=== PATIENT | female | born 1945 | race Caucasian/White ===

== ENCOUNTER 2016-04-13 17:10 | Inpatient (IN) | payer OTHER, MEDICAID ==
[~2016-04-13] VITALS: Ht 162.6 cm; Wt 115.4 kg
[2016-04-13] MEDS ORDERED: ACETAMINOPHEN 325 MG TAB ONE (18:31)
[2016-04-13] MEDS ORDERED: CEFTRIAXONE 1 GM VIAL ONE (20:30)
[2016-04-13] MEDS ORDERED: SODIUM CHLORIDE 0.9% 1,000 ML ONE (20:30)
[2016-04-13] MEDS ORDERED: SODIUM CHLORIDE 0.9% 100 ML IV ONE (20:31)
[2016-04-13] MEDS ORDERED: Hydrocodone/APAP 10/325 MG TAB ONE (20:43)
[2016-04-13] MEDS ORDERED: PHARMACY TO DOSE LEVAQUIN IV SCH (21:10)
[2016-04-13] MEDS ORDERED: PHARMACY TO DOSE ANTIBIOTIC XX SCH (21:10)
[2016-04-13] MEDS ORDERED: PHARMACY TO DOSE VANCOMYCIN IV SCH (21:10)
[2016-04-13] MEDS ORDERED: NEB-ALBUTEROL 2.5 MG/3 ML INH PRN (21:15)
[2016-04-13] MEDS ORDERED: CYCLOBENZAPRINE 5 MG TAB PO PRN (21:15)
[2016-04-13] MEDS ORDERED: SALINE FLUSH 10 ML FLUSH PRN (21:15)
[2016-04-13] MEDS ORDERED: MAG HYDROX 30 ML UDC PO PRN (21:15)
[2016-04-13] MEDS ORDERED: BISACODYL EC 5 MG TAB PO PRN (21:15)
[2016-04-13] MEDS ORDERED: BISACODYL 10 MG SUPP RECTAL PRN (21:15)
[2016-04-13] MEDS ORDERED: ACETAMINOPHEN 325 MG TAB PO PRN (21:15)
[2016-04-13] MEDS ORDERED: LORAZEPAM 0.5 MG TAB PO PRN (21:15)
[2016-04-13] MEDS ORDERED: ONDANSETRON 4 MG VIAL IV PRN (21:15)
[2016-04-13] MEDS ORDERED: [UNRECOGNIZED DRUG - REMARK] XX SCH (22:00)
[2016-04-13] MEDS: DUONEB INH SCH (23:10)
[2016-04-13 23:15] VITALS: RESP 18
[2016-04-13 23:16] VITALS: Ht 162.6 cm; Wt 115.4 kg
[2016-04-13 23:19] VITALS: BP_SYST 118; BP_SYST 124; RESP 16; TEMP 99.4
[2016-04-13] MEDS ORDERED: VANCOMYCIN 1,000 MG in SODIUM CHLORIDE 0.9% 250 ML IV ONE (23:20)
[2016-04-13] MEDS ORDERED: LEVOFLOXACIN 750 MG/150 ML 150 ML IV ONE (23:20)
[2016-04-13] MEDS ORDERED: VANCOMYCIN 2,500 MG in SODIUM CHLORIDE 0.9% 500 ML IV ONE (23:30)
[2016-04-13] MEDS: LEVOFLOXACIN 750 MG/150 ML 150 ML IV SCH (23:55)
[2016-04-14] MEDS: GUAIFENESIN ER 600 MG TABCR PO SCH ×3 (00:04→20:44)
[2016-04-14 03:08] VITALS: BP_SYST 130; RESP 18; TEMP 100.1
[2016-04-14] MEDS: SUCRALFATE 1 GM TAB PO SCH ×4 (05:49→20:44)
[2016-04-14] MEDS: LEVOTHYROXINE 0.2 MG TAB PO SCH (05:49)
[2016-04-14] MEDS: SODIUM CHLORIDE 0.9% FLUSH BAG 500 ML IV SCH (05:50)
[2016-04-14] MEDS: DUONEB INH SCH ×3 (07:20→18:30)
[2016-04-14 07:36] VITALS: BP_SYST 112; RESP 20; TEMP 99.4
[2016-04-14] MEDS: SALINE FLUSH 10 ML FLUSH SCH ×2 (08:11→20:44)
[2016-04-14] MEDS: LEVOFLOXACIN 750 MG/150 ML 150 ML IV SCH (08:11)
[2016-04-14] MEDS: TOLTERODINE 1 MG TAB PO SCH ×2 (08:12→20:44)
[2016-04-14] MEDS: GABAPENTIN 400 MG CAP PO SCH ×3 (08:12→20:45)
[2016-04-14] MEDS: SPIRONOLACTONE 25 MG TAB PO SCH (08:12)
[2016-04-14] MEDS: ASPIRIN 81 MG CHEW TAB PO SCH (08:12)
[2016-04-14] MEDS: PANTOPRAZOLE 40 MG TAB PO SCH (08:12)
[2016-04-14] MEDS: OSELTAMIVIR 75 MG CAP PO SCH ×2 (10:45→20:44)
[2016-04-14] MEDS ORDERED: Furosemide 40 MG/4 ML VIAL IV ONE (11:25)
[2016-04-14 11:28] VITALS: BP_SYST 132; RESP 18; TEMP 99.6
[2016-04-14] MEDS: AZTREONAM 1,000 MG in SODIUM CHLORIDE 0.9% 100 ML IV SCH ×2 (13:07→17:29)
[2016-04-14] MEDS: VANCOMYCIN 1,750 MG in SODIUM CHLORIDE 0.9% 500 ML IV SCH (14:31)
[2016-04-14 15:57] VITALS: BP_SYST 122; RESP 20; TEMP 99.6
[2016-04-14 19:36] VITALS: BP_SYST 146; TEMP 99.4
[2016-04-14] MEDS: Atorvastatin 20 MG TAB PO SCH (20:44)
[2016-04-14 23:13] VITALS: BP_SYST 168; RESP 18; TEMP 98.7
[2016-04-15] MEDS: AZTREONAM 1,000 MG in SODIUM CHLORIDE 0.9% 100 ML IV SCH ×2 (00:06→13:21)
[2016-04-15] MEDS: VANCOMYCIN 1,750 MG in SODIUM CHLORIDE 0.9% 500 ML IV SCH (02:44)
[2016-04-15 03:10] VITALS: BP_SYST 146; RESP 18; TEMP 99.1
[2016-04-15] MEDS: DUONEB INH SCH ×3 (06:14→18:30)
[2016-04-15] MEDS: LEVOTHYROXINE 0.2 MG TAB PO SCH (06:34)
[2016-04-15] MEDS: SODIUM CHLORIDE 0.9% FLUSH BAG 500 ML IV SCH ×2 (06:34→19:30)
[2016-04-15 07:49] VITALS: BP_SYST 160; RESP 18; TEMP 98.3
[2016-04-15] MEDS: SALINE FLUSH 10 ML FLUSH SCH ×2 (08:00→19:28)
[2016-04-15] MEDS: GABAPENTIN 400 MG CAP PO SCH ×3 (08:33→19:28)
[2016-04-15] MEDS: ASPIRIN 81 MG CHEW TAB PO SCH (08:34)
[2016-04-15] MEDS: TOLTERODINE 1 MG TAB PO SCH ×2 (08:34→19:43)
[2016-04-15] MEDS: SUCRALFATE 1 GM TAB PO SCH ×4 (08:34→19:43)
[2016-04-15] MEDS: SPIRONOLACTONE 25 MG TAB PO SCH (08:34)
[2016-04-15] MEDS: GUAIFENESIN ER 600 MG TABCR PO SCH ×2 (08:35→19:43)
[2016-04-15] MEDS: OSELTAMIVIR 75 MG CAP PO SCH ×2 (08:35→19:43)
[2016-04-15] MEDS: PANTOPRAZOLE 40 MG TAB PO SCH (08:35)
[2016-04-15 12:19] VITALS: BP_SYST 134; RESP 18; TEMP 98.8
[2016-04-15] MEDS: LINEZOLID 600 MG TAB PO SCH ×2 (15:17→19:42)
[2016-04-15] MEDS ORDERED: MISSING DOSE XX ONE (15:20)
[2016-04-15] MEDS: LEVOFLOXACIN 750 MG TAB PO SCH (15:53)
[2016-04-15 16:06] VITALS: BP_SYST 130; RESP 18; TEMP 98.9
[2016-04-15] MEDS ORDERED: BISACODYL EC 5 MG TAB PO ONE (17:00)
[2016-04-15] MEDS ORDERED: BISACODYL EC 5 MG TAB PO PRN (17:00)
[2016-04-15] MEDS ORDERED: ONDANSETRON 4 MG TAB PO PRN (19:25)
[2016-04-15] MEDS: Hydrocodone/APAP 10/325 MG TAB PO PRN (19:42)
[2016-04-15] MEDS: SENNA 8.6 MG TAB PO SCH (19:43)
[2016-04-15] MEDS: Atorvastatin 20 MG TAB PO SCH (19:43)
[2016-04-15 20:12] VITALS: BP_SYST 134; RESP 18; TEMP 98.9
[2016-04-15 22:41] VITALS: BP_SYST 142; RESP 18; TEMP 98.5
[2016-04-16] VITALS (7 sets, daily range): BP systolic 126–140; RESP 18; TEMP 97.9–98.1
[2016-04-16] MEDS: Hydrocodone/APAP 10/325 MG TAB PO PRN ×3 (01:27→14:02)
[2016-04-16] MEDS: SUCRALFATE 1 GM TAB PO SCH ×3 (06:02→16:00)
[2016-04-16] MEDS: LEVOTHYROXINE 0.2 MG TAB PO SCH (06:03)
[2016-04-16] MEDS: DUONEB INH SCH ×2 (07:16→11:56)
[2016-04-16] MEDS: SALINE FLUSH 10 ML FLUSH SCH (08:00)
[2016-04-16] MEDS: TOLTERODINE 1 MG TAB PO SCH (08:15)
[2016-04-16] MEDS: LINEZOLID 600 MG TAB PO SCH (08:15)
[2016-04-16] MEDS: LEVOFLOXACIN 750 MG TAB PO SCH (08:15)
[2016-04-16] MEDS: GUAIFENESIN ER 600 MG TABCR PO SCH (08:15)
[2016-04-16] MEDS: OSELTAMIVIR 75 MG CAP PO SCH (08:16)
[2016-04-16] MEDS: SENNA 8.6 MG TAB PO SCH (08:16)
[2016-04-16] MEDS: PANTOPRAZOLE 40 MG TAB PO SCH (08:16)
[2016-04-16] MEDS: SPIRONOLACTONE 25 MG TAB PO SCH (08:16)
[2016-04-16] MEDS: ASPIRIN 81 MG CHEW TAB PO SCH (08:16)
[2016-04-16] MEDS: GABAPENTIN 400 MG CAP PO SCH ×2 (08:18→16:00)
[2016-04-16] MEDS ORDERED: MISSING DOSE XX ONE (08:35)
[2016-04-16] MEDS ORDERED: NITROFURANTOIN 100 MG CAP PO SCH (13:00)
[2016-04-17] MEDS ORDERED: LEVOFLOXACIN 750 MG TAB PO SCH (09:00)
== END 2016-04-16 17:56 | DRG 291 ==
LOC: ENRESERVDT → ENRESERVTM → ER 17:10 → ENPENDDIS 21:07 → EMR 21:07 → 4THE 22:24
PROVIDERS: ADMIT Family Medicine Addiction Medicine; ATTEND Family Medicine Addiction Medicine
DX: I13.0 Hypertensive heart and chronic kidney disease with heart failure and stage 1 through stage 4 chronic kidney disease, or unspecified chronic kidney disease (principal); J11.00 Influenza due to unidentified influenza virus with unspecified type of pneumonia; N39.0 Urinary tract infection, site not specified; F03.90 Unspecified dementia, unspecified severity, without behavioral disturbance, psychotic disturbance, mood disturbance, and anxiety; N18.3 Chronic kidney disease, stage 3 (moderate); D63.1 Anemia in chronic kidney disease; I50.31 Acute diastolic (congestive) heart failure; Z68.41 Body mass index [BMI] 40.0-44.9, adult; J44.1 Chronic obstructive pulmonary disease with (acute) exacerbation; B96.20 Unspecified Escherichia coli [E. coli] as the cause of diseases classified elsewhere; I10 Essential (primary) hypertension; E03.9 Hypothyroidism, unspecified; I25.10 Atherosclerotic heart disease of native coronary artery without angina pectoris; Z95.5 Presence of coronary angioplasty implant and graft; Z87.891 Personal history of nicotine dependence; Z95.2 Presence of prosthetic heart valve; E66.01 Morbid (severe) obesity due to excess calories; M19.90 Unspecified osteoarthritis, unspecified site; Z79.82 Long term (current) use of aspirin; Y95 Nosocomial condition; Z87.11 Personal history of peptic ulcer disease
CPT/HCPCS: 36415; 71010; 80048; 80053; 81001; 83605; 83880; 85025; 87040; 87077; 87088; 87186; 87278; 87299; 87804; 94640; 94799; 96361; 96365; 99223; 99233; 99239